=== PATIENT | male | born 1930 | race Caucasian/White ===

== ENCOUNTER 2016-10-25 10:05 | Inpatient (IN) | payer MEDICARE ==
[2016-10-25] MEDS ORDERED: ETOMIDATE 2 MG/ML 10ML VIAL IV ONE ×2 (10:25→10:27)
[2016-10-25 11:01] LABS: ABSOLUTE NEUTROPHIL COUNT 4.1 K/mm3 (1.8-7.7); BASO % 0.4 % (0.2-1.0); EOS # 0.2 (0.0-0.5); HEMATOCRIT 35.8 % (32.0-52.0); HEMOGLOBIN 11.6 gm/l (14.0-18.0); IMM NEUT% 0.4 % (0-1); LYMPH # 1.9 (1.0-4.8); LYMPH % 26.2 % (15-45); MEAN CELL VOLUME 89.5 fl (80.0-94.0); MEAN CORPUSCULAR HGB CONC 32.4 g/dl (33.0-37.0); MEAN PLATELET VOLUME 10.7 fl (7.4-10.4); MONO # 0.9 (0.0-0.8); MONO % 12.6 % (4-12); NEUT % 57.4 % (43-75); PH,URINE 6.5 (5.0-8.0); PLATELET COUNT 265 K/mm3 (130-400); RED CELL DISTRIBUTION WIDTH 14.8 % (11.5-14.5); SPECIFIC GRAVITY 1.015 (1.001-1.030); URINE APPEARANCE CLEAR; URINE BILIRUBIN NEGATIVE (NEGATIVE); URINE BLOOD NEGATIVE (NEGATIVE); URINE COLOR YELLOW; URINE GLUCOSE (UA) NEGATIVE (NEGATIVE); URINE LEUKOCYTE ESTERASE NEGATIVE (NEGATIVE); URINE NITRITE NEGATIVE (NEGATIVE); URINE PROTEIN NEGATIVE (NEGATIVE); URINE UROBILINOGEN 1 mg/dL (0-1 mg/dl)
[2016-10-25 11:20] LABS: ALB/GLOB RATIO 1.4 (>1.0); ALBUMIN 3.6 gm/dL (3.5-5.7); CALCIUM 10.6 mg/dL (8.6-10.3)
--- NOTE | 2016-10-25 11:36 | RAD ---
10/25/2016 11:15 AM CHEST - 2 VIEWS History: Confusion and weakness, question of pneumonia. Comparison: 02/19/2016 Findings: Two views of the chest are obtained. The lungs demonstrate a small area of patchy airspace disease at the right posterior peripheral base worrisome for small focus of pneumonia. There may be a tiny left effusion. Lungs are otherwise clear. The cardiomediastinal silhouette is unremarkable.. The osseous structures are intact.. Single-lead pacemaker is noted on the left with leads terminating in expected region of the right ventricle. IMPRESSION: Right posterior basilar probable pneumonia with tiny left effusion. Other stable findings as above.
--- NOTE | 2016-10-25 12:01 | CT ---
HEAD W/O CON: 10/25/2016 11:36 AM CLINICAL HISTORY: Increasing altered mental status and weakness. COMPARISON: CT head without contrast 06/14/2016 TECHNIQUE: Contiguous axial 5 mm images from skull base to the vertex were obtained without IV contrast. Sagittal and coronal reformations with bone algorithm images were also obtained at this time. CT DI:: 51.7 DLP: 938.9 FINDINGS: Infarct: None Extra axial spaces: Normal in size and morphology for the patient's age. Hemorrhage: None. Ventricular system: Normal in size and morphology for the patient's age. Basal cisterns: Normal. Cerebral parenchyma: Mild to moderate global atrophy is again noted. Compensatory dilation the cerebral ventricles is present. Mild small vessel occlusive changes present within the periventricular white matter.. Midline shift: None. Cerebellum: Normal. Brainstem: Normal. OTHER: Calvarium: Normal. Vascular system: Normal. Visualized Paranasal sinuses and Mastoid air cells: Clear. Visualized Orbits and regional soft tissues: Normal. IMPRESSION: Atrophy and small vessel occlusive change. No acute intracranial process. Findings were called to Dr. Rodriguez at approximately 1157 hours on 10/24/2016.
[2016-10-25] MEDS ORDERED: CEFTRIAXONE 1 GRAM DUPLEX 50 ML IV ONE (12:20)
[2016-10-25] MEDS ORDERED: AZITHROMYCIN 500 MG VIAL ONE (13:11)
[2016-10-25] MEDS ORDERED: SODIUM CHLORIDE 0.9% 250 ML IV ONE (13:12)
[2016-10-25 14:34] VITALS: BMI 30.9
[2016-10-25] MEDS ORDERED: PNEUMOCOCCAL 23-VAL P-SAC VAC 0.5 ML VIAL IM V ONE (14:56)
[2016-10-25] MEDS ORDERED: FLU VACC 2016-17 (65 YR+)/PF 180 MCG/0.5 ML SYRINGE IM V ONE (14:56)
[2016-10-25] MEDS ORDERED: MENTHOL/CETYLPYRD 1 EACH LOZENGE PO PRN (17:35)
[2016-10-25] MEDS ORDERED: BLISTEX LIPSTICK 1 EACH TP PRN (17:35)
[2016-10-25] MEDS ORDERED: ACETAMINOPHEN 325 MG TABLET PO PRN (17:35)
[2016-10-25] MEDS ORDERED: SODIUM CHLORIDE 0.9% 100 ML IV PRN (17:35)
[2016-10-25] MEDS ORDERED: MAGNESIUM HYDROXIDE 30 ML UDCUP PO PRN (17:35)
[2016-10-25] MEDS ORDERED: SODIUM CHLORIDE 0.9% 500 ML IV SCH (17:45)
[2016-10-25] MEDS ORDERED: ALBUTEROL NEB 2.5 MG/3 ML VIAL.NEB NEB PRN (17:48)
[2016-10-25] MEDS ORDERED: ENOXAPARIN SODIUM 40 MG/0.4 ML SYRINGE SUB-Q SCH (18:00)
--- NOTE | 2016-10-25 18:17 | HP ---
HAYDEE PETER [id number] : 1930 DATE OF ADMISSION: October 25, 2016 IDENTIFICATION: Mr. Peter is an 86-year-old followed by Dr. Bauer CHIEF COMPLAINT: Confusion. HISTORY OF PRESENT ILLNESS: Mr. Peter was brought in to [facility] Emergency Room today due to a few days history of declining status with excessive sleep, weakness, inability to walk which he normally does and increased confusion over his normal dementia. He was not noted to have a fever, cough or increased work of breathing, nor vomiting or diarrhea, but on evaluation in the emergency department, he was found to have pneumonia on chest x-ray. He was started on antibiotics and referred to the hospitalist service. Patient is significantly demented, disoriented, is not a reliable historian and the history is limited to that obtained in the emergency department. REVIEW OF SYSTEMS: He denies pain. Does endorse dyspnea, but is not reliable. PAST MEDICAL HISTORY: 1. Appears to have chronic atrial fibrillation with a pacemaker. 2. Hypertension, 3. Benign prostatic hypertrophy. 4. Dementia. PAST SURGICAL HISTORY: 1. Knee surgery. 2. Hernia repair. 3. Arm surgery. 4. Cardiac pacemaker placement. ALLERGIES: REPORTED TO: 1. AMOXICILLIN. 2. PEANUTS. 3. PRADAXA. 4. INTOLERANT OF LACTOSE. MEDICATIONS: No doses were provided. We will try to obtain those from his primary care doctor or pharmacy or family. 1. Eliquis. 2. Losartan. 3. Tamsulosin. HABITS: No current or past tobacco, alcohol or drugs. SOCIAL HISTORY: He does live at home and is cared for by his . They live outside of [place]. FAMILY HISTORY: Reported of coronary artery disease in both his parents and cerebrovascular accident in a sibling. PHYSICAL EXAMINATION: GENERAL: This is a pleasantly demented very elderly gentleman. He does not appear in any acute distress. VITAL SIGNS: Blood pressure 157/82, pulse 72, respiratory rate 16, temperature 97.6 degrees Fahrenheit, oxygen saturation 99% on room air. HEENT: Pupils are equal, round and reactive. Extraocular muscles appear intact, but he does not cooperate well with exam. Oropharynx is somewhat dry. Dentition in poor condition. NECK: No adenopathy or jugular venous distention appreciated. CHEST: Clear to auscultation. HEART: Is regular. ABDOMEN: Is soft, nontender, normal bowel tones. No organomegaly. EXTREMITIES: 2+ pitting edema to the knee on the left, 1+ pitting edema to the knee on the right. This is reportedly chronic. Trace peripheral pulses. No cyanosis or clubbing. NEUROLOGIC: Patient is not oriented but does not show any focal motor deficits. LABORATORY DATA: White blood cell count is 7.1 with 57% neutrophils, hemoglobin and hematocrit 11.6 and 35.8, platelets 265. Lactate 0.7, sodium 142, potassium 4.0, chloride 109, CO2 28, BUN 17, creatinine 0.8, glucose 101, calcium slightly high at 10.6. B-type natriuretic peptide 201, troponin I less than 0.01. Protein slightly low at 6.2. Urinalysis is normal. RADIOLOGY: 1. Chest x-ray shows a right posterior basilar infiltrate. 2. CT scan of the brain shows atrophy and small vessel occlusive disease. No acute process. ASSESSMENT: Mr. Peter is an 86-year-old with: 1. Community acquired pneumonia presumed to be bacterial infection, present on admission. 2. He has acute metabolic encephalopathy as evidence by increased weakness and increased confusion from his baseline dementia. 3. He has underlying chronic atrial fibrillation, hypertension, prostatic hypertrophy, and dementia. PLAN: 1. Admit to medical/surgical floor. 2. Treatment with intravenous ceftriaxone and azithromycin. 3. He is not requiring supplemental oxygen but we will provide that if necessary and nebulizer treatments. 4. Continue outpatient medications. 5. Additional Venous thromboembolism prophylaxis is not needed as he is anticoagulated on apixaban, but for his chronic edema, we will place compression stockings and sequential compression devices. 6. DO NOT RESUSCITATE status. 7. Physical therapy and occupational therapy evaluation and treatment. cc: Rey Bauer M.D.
[2016-10-25] MEDS ORDERED: PUMP TUBING ONE (18:50)
[2016-10-25] MEDS: TAMSULOSIN HCL 0.4 MG CAPSULE.DR PO SCH (20:49)
[2016-10-25] MEDS: DOCUSATE SODIUM 100 MG CAPSULE PO SCH (20:50)
[2016-10-25] MEDS: APIXABAN 2.5 MG TABLET PO SCH (20:52)
[2016-10-26] MEDS: DOCUSATE SODIUM 100 MG CAPSULE PO SCH ×2 (10:31→20:43)
[2016-10-26] MEDS: LOSARTAN POTASSIUM 50 MG TABLET PO SCH (10:32)
[2016-10-26] MEDS: APIXABAN 2.5 MG TABLET PO SCH ×2 (10:32→20:44)
[2016-10-26] MEDS ORDERED: PUMP TUBING ONE (12:09)
[2016-10-26] MEDS: CEFTRIAXONE 1 GRAM DUPLEX 1 G in Premix (D5W) 50 ml 1 EACH IV SCH (12:23)
--- NOTE | 2016-10-26 12:49 | PDOC43 ---
- Subjective Chief Complaint: altered mental status and weakness Reports a little bit of cough, no dyspnea. Had severe vertigo when attempting to sit or stand with therapies. - Objective Vital Signs Temperature 97.0 F 10/26/16 07:58 Pulse Rate 74 10/26/16 07:58 Respiratory Rate 18 10/26/16 07:58 Blood Pressure 162/78 10/26/16 07:58 O2 Saturation by Pulse Oximetry 97 10/26/16 07:58 Oxygen Delivery Method Room Air Oxygen Flow Rate 0 Intake and Output 10/25/16 10/26/16 10/27/16 06:59 06:59 06:59 Intake Total 500 Output Total 350 Balance 150 General: Alert, Cooperative, No Oriented x3, No Acute Distress HEENT: Mucous membr. moist/pink Lungs: Clear to Auscultation Bilaterally Cardiovascular: Regular Rate and Rhythm Abdomen: Soft, Normal Bowel Sounds, No Tenderness, No Masses Extremities: Edema (chronic, no change), Normal Pulses Skin: Normal Color Neurological: Normal Speech Psych/Mental Status: Normal Mood Current Medications: Current meds reviewed in EMR. - Problems: Assessment/Plan (1) Pneumonia Qualifiers: Laterality: right Lung location: lower lobe of lung Status: Acute Assessment/Plan: Presumed bacterial pneumonia present on admit, continue current treatment pending culture results. (2) Acute metabolic encephalopathy Status: AcuteAssessment/Plan: Secondary to pneumonia with weakness and confusion worse than his baseline dementia. (3) Weakness Status: AcuteAssessment/Plan: Secondary to pneumonia, continue to attempt work with therapies. (4) A-fib Qualifiers: Atrial fibrillation type: chronic Qualifier Code: (I48.2) Chronic atrial fibrillation Status: ChronicAssessment/Plan: anticoagulated on apixaban, rate controlled. (5) BPH (benign prostatic hyperplasia) Qualifiers: Prostatic enlargement morphology: unspecified morphology Lower urinary tract symptom presence: symptoms present Qualifier Code: (N40.1) Benign prostatic hyperplasia with lower urinary tract symptoms Status: Chronic Assessment/Plan: continue tamsulosin (6) Dementia arising in the senium and presenium Status: ChronicAssessment/Plan: Stable, evaluate for return home vs. SNF rehab (7) HTN (hypertension), benign Status: ChronicAssessment/Plan: stable (8) Vertigo Status: AcuteAssessment/Plan: Unclear etiology, trial of meclazine VTE Prophylaxis: Apixaban Disposition: Home with family vs. SNF rehab in 1-2 days.
[2016-10-26] MEDS: AZITHROMYCIN 500 MG in SODIUM CHLORIDE 0.9% 250 ML IV SCH (13:01)
[2016-10-26] MEDS: MECLIZINE HCL 12.5 MG TABLET PO SCH ×2 (13:13→18:25)
[2016-10-26] MEDS ORDERED: IV START KIT ONE (13:22)
[2016-10-26] MEDS ORDERED: SODIUM CHLORIDE 0.9% FLUSH 10 ML ONE (13:22)
[2016-10-26] MEDS ORDERED: MECLIZINE HCL 25 MG TABLET PO PRN (19:00)
[2016-10-26] MEDS: TAMSULOSIN HCL 0.4 MG CAPSULE.DR PO SCH (20:43)
[2016-10-27] MEDS: DOCUSATE SODIUM 100 MG CAPSULE PO SCH (08:47)
[2016-10-27] MEDS: APIXABAN 2.5 MG TABLET PO SCH (08:48)
[2016-10-27] MEDS: LOSARTAN POTASSIUM 50 MG TABLET PO SCH (08:48)
[2016-10-27] MEDS: MECLIZINE HCL 12.5 MG TABLET PO SCH (09:35)
--- NOTE | 2016-10-27 10:15 | PDOC5 ---
ADMIT DATE: 10/25/16 DISCHARGE DATE: 10/27/16 ADMISSION DIAGNOSES: Right posterior basilar pneumonia PROCEDURES PERFORMED THIS HOSPITALIZATION: Head CT--chronic changes CONSULTATIONS: OT/PT--patient returned to his baseline functional status. HOSPITAL COURSE: This is a 86 year old who presented with weakness and acute metabolic encephalopathy. He was found to have pneumonia on CXR. He was treated with ceftriaxone and azithromycin and rapidly returned to his baseline. He was given meclazine for chronic vertigo with good response. - Exam Vital Signs Temperature 97.6 F 10/27/16 08:21 Pulse Rate 79 10/27/16 08:21 Respiratory Rate 22 10/27/16 08:21 Blood Pressure 164/99 10/27/16 08:21 O2 Saturation by Pulse Oximetry 97 10/27/16 08:21 Oxygen Delivery Method Room Air Oxygen Flow Rate 0 General: Alert, Cooperative, No Oriented x3, No Acute Distress HEENT: Mucous membr. moist/pink Lungs: Diminished at Bases (slightly) Cardiovascular: Regular Rate and Rhythm Abdomen: Soft, Normal Bowel Sounds, No Tenderness, No Masses Extremities: Edema (1+ on right, 2+ on left, all chronic), Normal Pulses Skin: Normal Color Neurological: Normal Speech Psych/Mental Status: Normal Mood - Problems:Assessment/Plan (1) Pneumonia Qualifiers: Laterality: right Lung location: lower lobe of lung Status: Acute Assessment/Plan: Presumed bacterial pneumonia present on admit, no specific organism identified but doing well, change to PO abx and discharge. (2) Acute metabolic encephalopathy Status: AcuteAssessment/Plan: Secondary to pneumonia with weakness and confusion worse than his baseline dementia at the time of admit. Resolved and now back at his baseline. (3) Weakness Status: AcuteAssessment/Plan: Secondary to pneumonia, resolved and back to baseline per therapies today. (4) A-fib Qualifiers: Atrial fibrillation type: chronic Qualifier Code: (I48.2) Chronic atrial fibrillation Status: ChronicAssessment/Plan: anticoagulated on apixaban, rate controlled. (5) BPH (benign prostatic hyperplasia) Qualifiers: Prostatic enlargement morphology: unspecified morphology Lower urinary tract symptom presence: symptoms present Qualifier Code: (N40.1) Benign prostatic hyperplasia with lower urinary tract symptoms Status: Chronic Assessment/Plan: continue tamsulosin (6) Dementia arising in the senium and presenium Status: ChronicAssessment/Plan: Stable, return home. (7) HTN (hypertension), benign Status: ChronicAssessment/Plan: High today but will defer medication adjustment to outpatient doctor. (8) Vertigo Status: AcuteAssessment/Plan: Unclear etiology but patient reports symptoms are chronic. Responded to trial of meclazine. - Disposition: Disposition: Home with family - Discharge Plan Forms: Discharge Instructions Prescriptions: Meclizine [ANTIVERT 25 MG TABLET (SHF)] 12.5 mg PO QID PRN #20 tablet PRN Reason: dizziness Cefprozil 250 mg [CEFZIL 250 MG TABLET (SHF)] 500 mg PO BID 7 Days Follow-Up: Rey Bauer MD [Primary Care Provider] - In 7-10 days Condition: Good Disposition: Home
[2016-10-27 11:08] VITALS: BP 152/74
[2016-10-27] MEDS: CEFTRIAXONE 1 GRAM DUPLEX 1 G in Premix (D5W) 50 ml 1 EACH IV SCH (12:07)
[2016-10-27] MEDS: AZITHROMYCIN 500 MG in SODIUM CHLORIDE 0.9% 250 ML IV SCH (12:07)
== END 2016-10-27 13:30 | disposition home or self-care (01) | DRG 308 ==
LOC: ED 10:05 → MS 13:07
PROVIDERS: ADMIT Family Medicine; ATTEND Family Medicine
DX: I48.2 Chronic atrial fibrillation (principal); J15.9 Unspecified bacterial pneumonia; G93.41 Metabolic encephalopathy; Z95.0 Presence of cardiac pacemaker; I10 Essential (primary) hypertension; N40.0 Benign prostatic hyperplasia without lower urinary tract symptoms; F03.90 Unspecified dementia, unspecified severity, without behavioral disturbance, psychotic disturbance, mood disturbance, and anxiety; R42 Dizziness and giddiness

== ENCOUNTER 2017-01-16 16:25 | Inpatient (IN) | payer MEDICARE ==
[2017-01-16 17:07] LABS: ABSOLUTE NEUTROPHIL COUNT 5.2 K/mm3 (1.8-7.7); BASO % 0.3 % (0.2-1.0); EOS # 0.2 (0.0-0.5); EOS % 2.3 % (0.9-2.9); HEMATOCRIT 35.5 % (32.0-52.0); HEMOGLOBIN 11.7 gm/l (14.0-18.0); IMM NEUT% 0.2 % (0-1); LYMPH # 2.3 (1.0-4.8); LYMPH % 26.3 % (15-45); MEAN CORPUSCULAR HEMOGLOBIN 29.3 pg (27.0-31.0); MONO # 1.1 (0.0-0.8); MONO % 12.5 % (4-12); NEUT % 58.4 % (43-75); PLATELET COUNT 230 K/mm3 (130-400); RED CELL DISTRIBUTION WIDTH 15.5 % (11.5-14.5)
[2017-01-16 17:09] LABS: PH,URINE 6.5 (5.0-8.0); URINE APPEARANCE HAZY; URINE BILIRUBIN NEGATIVE (NEGATIVE); URINE BLOOD 1+ (NEGATIVE); URINE COLOR YELLOW; URINE GLUCOSE (UA) NEGATIVE (NEGATIVE); URINE LEUKOCYTE ESTERASE 1+ (NEGATIVE); URINE NITRITE NEGATIVE (NEGATIVE); URINE PROTEIN NEGATIVE (NEGATIVE); URINE UROBILINOGEN NORMAL (0-1 mg/dl)
[2017-01-16 17:34] LABS: ALB/GLOB RATIO 1.5 (>1.0); ALBUMIN 3.7 gm/dL (3.5-5.7); CALCIUM 10.7 mg/dL (8.6-10.3); MAGNESIUM 2.2 mg/dL (1.9-2.7)
[2017-01-16 17:46] LABS: URINE BACTERIA 2+; URINE EPITHELIAL CELLS 0-2 /hpf; URINE WBC 20-30 /hpf
--- NOTE | 2017-01-16 17:53 | CT ---
HEAD W/O CON COMPARISON: CT head without contrast 10/25/2016 HISTORY: Ground level fall, striking head, on blood thinners. TECHNIQUE: Using a [employer] Aqu[employer] [address] scanner, images were obtained through the head. An automated dose reduction technique was used to minimize patient radiation dose. DOSE INFORMATION: CTDIvol (mGy): 51.70 DLP(mGycm): 938.90 FINDINGS: Mass: None Intracranial Hemorrhage: None Acute Infarction: None Cerebral hemispheres: Moderate atrophy with low attenuation in the white matter. Basal ganglia: Normal Thalami: Normal Brainstem: Normal Cerebellum: Normal Ventricles: Normal Basilar cisterns: Normal Corpus callosum: Normal Pituitary fossa: Normal Middle ears and mastoid air cells: Normal Orbits and sinuses: Normal Skull and scalp: Normal Dural sinuses and vessels: Atherosclerosis of the internal carotid arteries. Ectasia of the basilar artery and the left vertebral artery. IMPRESSION: No acute finding or change since 10/25/2016. Moderate cerebral atrophy and chronic small vessel schema change. No intracranial hemorrhage. The report was sent to the emergency department electronic medical record system 01/16/2017 at 17:53
[2017-01-16] MEDS ORDERED: CEFTRIAXONE 1 GRAM DUPLEX 50 ML IV ONE (18:44)
--- NOTE | 2017-01-16 18:48 | RAD ---
CHEST - 2 VIEWS COMPARISON: Chest 2 views, 10/25/2016 HISTORY: Weakness and altered mental status. FINDINGS: Views: Frontal and lateral chest Lungs: Linear opacity left lung base that was not present on the prior chest x-ray. Heart and vessels: Normal size. There is a pacemaker. Trachea and bronchi: Normal Mediastinum and alana: Normal Costophrenic sulci: Normal Chest wall and bones: Normal. Upper abdomen: Normal. IMPRESSION: Infiltrate left lung base.
[2017-01-16] MEDS ORDERED: MENTHOL/CETYLPYRD 1 EACH LOZENGE PO PRN (19:57)
[2017-01-16] MEDS ORDERED: SODIUM CHLORIDE 0.9% 100 ML IV PRN (19:57)
[2017-01-16] MEDS ORDERED: ACETAMINOPHEN 325 MG TABLET PO PRN (19:57)
[2017-01-16] MEDS ORDERED: BLISTEX LIPSTICK 1 EACH TP PRN (19:57)
[2017-01-16] MEDS ORDERED: MAGNESIUM HYDROXIDE 30 ML UDCUP PO PRN (19:57)
[2017-01-16] MEDS ORDERED: ALBUTEROL NEB 2.5 MG/3 ML VIAL.NEB NEB PRN (20:24)
[2017-01-16 20:42] VITALS: BMI 24.3
[2017-01-16] MEDS ORDERED: MECLIZINE HCL 25 MG TABLET PO PRN (20:54)
[2017-01-16] MEDS: AZITHROMYCIN 500 MG in SODIUM CHLORIDE 0.9% 250 ML IV SCH (21:15)
[2017-01-16] MEDS: DOCUSATE SODIUM 100 MG CAPSULE PO SCH (22:04)
[2017-01-16] MEDS: APIXABAN 2.5 MG TABLET PO SCH (22:04)
[2017-01-17 06:04] LABS: ABSOLUTE NEUTROPHIL COUNT 3.5 K/mm3 (1.8-7.7); BASO # 0.1 K/mm3 (0.0-0.2); BASO % 0.8 % (0.2-1.0); EOS # 0.3 (0.0-0.5); EOS % 3.9 % (0.9-2.9); HEMATOCRIT 36.5 % (32.0-52.0); HEMOGLOBIN 11.7 gm/l (14.0-18.0); IMM NEUT% 0.3 % (0-1); LYMPH # 2.1 (1.0-4.8); LYMPH % 29.9 % (15-45); MEAN CELL VOLUME 90.1 fl (80.0-94.0); MEAN CORPUSCULAR HEMOGLOBIN 28.9 pg (27.0-31.0); MEAN CORPUSCULAR HGB CONC 32.1 g/dl (33.0-37.0); MEAN PLATELET VOLUME 10.9 fl (7.4-10.4); MONO # 1.1 (0.0-0.8); MONO % 15.4 % (4-12); NEUT % 49.7 % (43-75); PLATELET COUNT 212 K/mm3 (130-400); RED CELL DISTRIBUTION WIDTH 15.6 % (11.5-14.5)
[2017-01-17 06:30] LABS: CALCIUM 10.2 mg/dL (8.6-10.3)
--- NOTE | 2017-01-17 08:18 | PDOC43 ---
- Subjective Chief Complaint: Weakness Just waking up this morning. Denies breathing dificulty. - Objective Vital Signs Temperature 97.4 F 01/17/17 01:13 Pulse Rate 87 01/17/17 01:13 Respiratory Rate 16 01/17/17 01:24 Blood Pressure 168/82 01/17/17 01:13 O2 Saturation by Pulse Oximetry 98 01/17/17 01:13 Oxygen Delivery Method CPAP Oxygen Flow Rate 3 Intake and Output 01/16/17 01/17/17 01/18/17 06:59 06:59 06:59 Intake Total 450 Output Total 800 Balance -350 General: Alert, Cooperative, No Oriented x3, No Acute Distress HEENT: Other (dry from CPAP use) Lungs: Normal Air Movement, Other (few ronchi at left base) Cardiovascular: Regular Rate and Rhythm Abdomen: Soft, Normal Bowel Sounds, No Tenderness, No Masses Extremities: Edema (2+ on left, 1+ on right), Pulses Diminished but Palpable Skin: Normal Color Laboratory 01/17/17 05:30 01/17/17 05:30 01/17/17 05:30 RBC 4.05 L MCHC 32.1 L RDW 15.6 H Estimated GFR 80 H Current Medications: Current meds reviewed in EMR. - Problems: Assessment/Plan (1) Pneumonia Qualifiers: Pneumonia type: due to unspecified organism Laterality: left Lung location: lower lobe of lung Qualifier Code: (J18.1) Lobar pneumonia, unspecified organism Status: AcuteAssessment/Plan: Presumed bacterial pneumonia present on admit with acute metabolic encephalopathy (confusion and word finding difficulty worse than usual dementia) Treated with ceftriaxone and axithromycin, blood cultures pending. No O2 requirement (2) UTI (lower urinary tract infection) Status: AcuteAssessment/Plan: Presumed bacterial infection present on admit. Treated with ceftriaxone, urine culture pending. (3) Vertigo Status: ChronicAssessment/Plan: continue meclazine PRN (4) Weakness Status: ChronicAssessment/Plan: OT/PT consult, may benefit from SNF rehab (5) A-fib Qualifiers: Atrial fibrillation type: chronic Qualifier Code: (I48.2) Chronic atrial fibrillation Status: ChronicAssessment/Plan: and Sick Sinus Syndrome s/p AV node ablation and pacer placement. Stable, on Eloquis for anti-coagulation. 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 Furosemide recently increased from 20 mg daily to 40 mg daily. Continue to follow for diuresis. (9) TRUPTI (obstructive sleep apnea) Status: ChronicAssessment/Plan: Stable with CPAP from home. (10) HTN (hypertension), benign Status: ChronicAssessment/Plan: On Losartan and furosemide, hypertensive now but has been hypotensive in office , continue to follow. VTE Prophylaxis: Eloquis and mechanical. Disposition: Await culture results and OT/PT evaluation.
[2017-01-17] MEDS: APIXABAN 2.5 MG TABLET PO SCH ×2 (08:48→20:32)
[2017-01-17] MEDS: DOCUSATE SODIUM 100 MG CAPSULE PO SCH ×2 (08:48→20:35)
[2017-01-17] MEDS ORDERED: TAMSULOSIN HCL 0.4 MG CAPSULE.DR PO SCH (09:00)
[2017-01-17] MEDS ORDERED: FUROSEMIDE 40 MG TABLET PO SCH (09:00)
[2017-01-17] MEDS ORDERED: LOSARTAN POTASSIUM 50 MG TABLET PO SCH (09:00)
[2017-01-17] MEDS ORDERED: POTASSIUM CHLORIDE 10 MEQ TAB.SR PO SCH (09:00)
--- NOTE | 2017-01-17 09:23 | HP ---
Fidel Castro [id number] : 01/29/1929 DATE OF ADMISSION: 01/16/2017 IDENTIFICATION: Mr. Castro is an 86-year-old followed by Dr. Benjamin and Dr. Dutton. CHIEF COMPLAINT: Weakness and confusion. HISTORY OF PRESENT ILLNESS: Mr. Castro has dementia and is not able to provide much history, but his , son, and [id number] are here and provide history this evening. He has had generalized weakness particularly of his legs which has been increasing over the last couple of months. He has had frequent falls, last fell on Friday of his week, two days ago. He had more severe weakness this morning and could barely move his legs and was also more confused than usual having word finding difficulty and inappropriate responses to questions that he would normally be able to answer appropriately. His increased confusion and word finding difficulty have returned to his baseline, however, he did complain to his that he felt poorly and thought he needed to go to the hospital. He has had a cough. Denies feeling short of breath. Denies chest pain or fever and denies dysuria. On evaluation in the emergency department he was found to have a new left lower lobe infiltrate on chest x-ray as well as evidence of urinary tract infection. He was treated with ceftriaxone and referred to the hospitalist service. REVIEW OF SYSTEMS: HEENT: Chronic vertigo. Respiratory: Cough with some sputum. Denies dyspnea. Cardiac: No chest pain or palpitations. Gastrointestinal: No symptoms. Genitourinary: Denies dysuria. Musculoskeletal: Weakness. Constitutional: Denies fever. He has had swelling in his legs and feet with recent 14 pound weight gain, after increasing his furosemide dose he has lost 6 of those 14 pounds. PAST MEDICAL HISTORY: 1. Chronic atrial fibrillation and sick sinus syndrome status post AV node ablation and pacemaker placement. 2. Chronic diastolic heart failure per cardiology notes. 3. Benign prostatic hypertrophy. 4. Dementia. 5. Chronic vertigo. 6. Disturbance of gait. 7. Rosacea. 8. Obstructive sleep apnea treated with CPAP, but no oxygen requirement. PAST SURGICAL HISTORY: 1. Right knee surgery. 2. Hernia repair. 3. Arm surgery. 4. AV node ablation and cardiac pacemaker placement. 5. Prostate surgery about 15 years ago. ALLERGIES: REPORTED TO AMOXICILLIN, PEANUTS, PRADAXA, AND INTOLERANCE TO LACTOSE. MEDICATIONS: 1. Losartan 50 mg by mouth daily. 2. Eliquis 2.5 mg by mouth twice daily. 3. Furosemide 40 mg daily. 4. Potassium chloride 10 mEq daily. 5. Meclizine 12.5 to 25 mg as needed three times daily for vertigo. 6. Tamsulosin 0.4 mg daily. 7. Several vitamins and supplements. HABITS: No current or past tobacco, alcohol, or drugs. SOCIAL HISTORY: Lives outside of [place] with his . He is retired and due to his weakness and dementia the living situation is getting tenuous and he may need placement in a higher level of care. CODE STATUS: Do not resuscitate per prior admission. FAMILY HISTORY: Coronary artery disease in both his parents and cerebrovascular disease in a sibling. PHYSICAL EXAMINATION: GENERAL: This is a pleasantly demented elderly gentleman. He does have difficulty answering questions. VITAL SIGNS: Temperature 99.8 degrees Fahrenheit, blood pressure 137/67, pulse 71, respiratory rate 18, oxygen saturation 97% on room air. HEENT: Pupils constricted, equal, round, and reactive. Extraocular muscles intact. Oropharynx is moist. NECK: No jugular venous distention appreciated. CHEST: Very subtle coarseness at the left base. HEART: Regular. ABDOMEN: Soft, nontender, normal bowel tones. No organomegaly. EXTREMITIES: 1+ pitting edema on the right calf and foot, 2+ on the left with decreased but palpable dorsalis pedis pulses. He does have compression stockings on. NEUROLOGIC: Patient is alert, confused, does not show focal deficits. LABORATORIES: White blood cell count 8.9 with a normal differential. Hemoglobin and hematocrit 11.7 and 35.5, platelets 230. Lactate 1.1. Sodium 139, potassium 4.4, chloride 107, CO2 27, BUN 24, creatinine 0.9, glucose 113. Troponin I 0.01. Urinalysis specific gravity of 1.020, negative nitrite, 1+ blood, 1+ leukocyte esterase, 20-30 white blood cells, and 2+ bacteria. DIAGNOSTICS: CT of the brain shows generalized atrophy and small vessel ischemic changes, no change from October, no acute findings. Chest x-ray shows left basilar infiltrate which is new from October and EKG is paced rhythm. ASSESSMENT: 1. Mr. Castro is an 86-year-old who presents with community acquired presumed bacterial left lower lobe pneumonia. 2. Presumed bacterial urinary tract infection. 3. Acute metabolic encephalopathy secondary to the above infections different from his baseline dementia and that he had more word finding difficulty and inappropriate answers to questions. 4. Chronic sick sinus syndrome dependent on pacemaker and anticoagulated on Eliquis. 5. Chronic diastolic heart failure with lower extremity edema, but no hypoxemia. 6. Obstructive sleep apnea treated with CPAP. PLAN: 1. Admit to med/surg. 2. Treatment was started in the emergency department with intravenous ceftriaxone. We will continue that for both pneumonia and urinary tract infection and add Azithromycin for pneumonia. 3. Supplemental oxygen and nebulizer treatments if needed, but not currently needed. 4. Continue increased furosemide dose and fluid restrict and follow for continued diuresis. 5. Continue CPAP from home. 6. He is anticoagulated on Eliquis and does not require additional venous thromboembolism prophylaxis, however, his edema would benefit from compression stockings and sequential compression devices. 7. Do not resuscitate status. 8. Physical and occupational therapy evaluation and treatment. He may benefit from shelter rehabilitation given his increasing weakness and frequent falls at home. JOB: [id number]
[2017-01-17] MEDS ORDERED: CEFTRIAXONE 1 GRAM DUPLEX 1 G in Premix (D5W) 50 ml 1 EACH IV SCH (18:00)
[2017-01-17 19:06] VITALS: BP 125/60
[2017-01-17] MEDS: AZITHROMYCIN 500 MG in SODIUM CHLORIDE 0.9% 250 ML IV SCH (20:30)
== END 2017-01-17 23:59 | disposition still patient (30) | DRG 193 ==
LOC: ED 16:25 → MS 18:56 → OBSVTOIN 19:57
PROVIDERS: ADMIT Family Medicine; ATTEND Family Medicine
DX: J15.9 Unspecified bacterial pneumonia (principal); G93.41 Metabolic encephalopathy; N39.0 Urinary tract infection, site not specified; I50.32 Chronic diastolic (congestive) heart failure; I48.2 Chronic atrial fibrillation; Z95.0 Presence of cardiac pacemaker; N40.0 Benign prostatic hyperplasia without lower urinary tract symptoms; F03.90 Unspecified dementia, unspecified severity, without behavioral disturbance, psychotic disturbance, mood disturbance, and anxiety; R42 Dizziness and giddiness; G47.33 Obstructive sleep apnea (adult) (pediatric); B96.89 Other specified bacterial agents as the cause of diseases classified elsewhere; Z66 Do not resuscitate; I11.0 Hypertensive heart disease with heart failure